=== PATIENT | female | born 1960 | race Caucasian/White ===

== ENCOUNTER 2024-12-12 10:57 | Emergency (ER) | payer OTHER ==
[~2024-12-12] VITALS: Ht 162.6 cm; Wt 59.4 kg
[2024-12-12 11:13] VITALS: TEMP 98.5
[2024-12-12 12:00] VITALS: PULSE 78; RESP 18; O2SAT 99
== END 2024-12-12 12:40 | disposition home or self-care (01) ==
LOC: ER 11:31
DX: S92.355A Nondisplaced fracture of fifth metatarsal bone, left foot, initial encounter for closed fracture (principal); X50.1XXA Overexertion from prolonged static or awkward postures, initial encounter; Y92.89 Other specified places as the place of occurrence of the external cause; E03.9 Hypothyroidism, unspecified; E78.5 Hyperlipidemia, unspecified; F41.9 Anxiety disorder, unspecified
CPT/HCPCS: 99284